=== PATIENT | female | born 1985 | race Caucasian/White ===

== ENCOUNTER 2016-11-12 17:21 | Emergency (ER) | payer BC, OTHER ==
--- NOTE | 2016-11-12 17:46 | RAD ---
Name: DIPESH ADHIKARI Exam: Left elbow Comparison: None Clinical history: Left elbow pain. Trauma. Findings: 3 views of the left elbow are submitted. Bone density is normal. Joint spaces are maintained. There is no fracture, dislocation, periosteal reaction, foreign body or joint effusion. Impression: Negative left elbow
[2016-11-12] MEDS ORDERED: ACETAMINOPHEN 325 MG TABLET ONE (18:08)
== END 2016-11-12 18:15 | disposition home or self-care (01) ==
LOC: ED 17:21
DX: M25.522 Pain in left elbow (principal); W17.89XA Other fall from one level to another, initial encounter; Y93.02 Activity, running; Y92.9 Unspecified place or not applicable
CPT/HCPCS: 73080; 99283 ×2; A9270